=== PATIENT | female | born 1975 | race Caucasian/White ===

== ENCOUNTER 2016-09-05 08:57 | Inpatient (IN) | payer OTHER ==
[2016-09-05 10:02] VITALS: BMI 28.5
[2016-09-05] MEDS ORDERED: NICOTINE POLACRILEX 4 MG GUM BUC PRN (11:37)
[2016-09-05] MEDS ORDERED: MAGNESIUM HYDROX 2400MG/30ML ORAL SUSPENSION 30 ML CUP PO PRN (11:37)
[2016-09-05] MEDS ORDERED: MAGNESIUM CITRATE 300 ML BOTTLE PO PRN (11:37)
[2016-09-05] MEDS ORDERED: diphenhydrAMINE HCL 50 MG CAPSULE PO PRN (11:37)
[2016-09-05] MEDS ORDERED: MENTHOL/PHENOL 1 EACH UD MM PRN (11:37)
[2016-09-05] MEDS ORDERED: guaiFENesin/D-METHORPHAN HB 10 ML UNIT-DOSE CUPS PO PRN (11:37)
[2016-09-05] MEDS ORDERED: MAG HYDROX/AL HYDROX/SIMETH 30 ML UNIT-DOSE CUP PO PRN (11:37)
[2016-09-05] MEDS ORDERED: ACETAMINOPHEN 325 MG TABLET (FP) PO PRN (11:37)
[2016-09-05] MEDS ORDERED: IBUPROFEN 400 MG TABLET (FP) PO PRN (11:37)
[2016-09-05] MEDS ORDERED: P-EPHED 60MG/TRIPROLIDI 2.5MG TABLET PO PRN (11:37)
[2016-09-05] MEDS ORDERED: LOPERAMIDE HCL 2 MG CAPSULE PO PRN (11:37)
[2016-09-05] MEDS ORDERED: ALBUTEROL SO4 6.7 GM HFA INHALER IH PRN (11:46)
--- NOTE | 2016-09-05 11:54 | HP ---
CIWA Score - CIWA Score Nausea/Vomitin-Mild Nausea/No Vomiting Muscle Tremors: 5 Anxiety: 5 Agitation: 4-Moderately Restless Paroxysmal Sweats: 3 Orientation: 1-Uncertain about Date Tacttile Disturbances: 1-Very Mild Itch/Numbness Auditory Disturbances: 0-None Visual Disturbances: 0-None Headache: 0-None Present CIWA-Ar Total Score: 20 Admission ROS BHS - HPI Chief Complaint: Withdrawal sx. Allergies/Adverse Reactions: Allergies Allergy/AdvReac Type Severity Reaction Status Date / Time No Known Allergies Allergy Verified 09/05/16 10:29 History of Present Illness: 40 y/o woman with a long hx. of alcoholism is admitted for detox. Pt. denies previous detox. Exam Limitations: No Limitations - Ebola screening Have you traveled outside of the country in the last 21 days: No Have you had contact with anyone from an Ebola affected area: No Have you been sick,other than usual withdrawal symptoms: No Do you have a fever: No - Review of Systems Constitutional: Diaphoresis EENT: reports: No Symptoms Reported Respiratory: reports: Cough Cardiac: reports: No Symptoms Reported GI: reports: Nausea, Abdominal cramping : reports: No Symptoms Reported Musculoskeletal: reports: Joint Pain (Aparicio's cyst left knee) Integumentary: reports: Sweating Neuro: reports: Tingling, Tremors Endocrine: reports: No Symptoms Reported Hematology: reports: No Symptoms Reported Psychiatric: reports: No Sypmtoms Reported Other Systems: Reviewed and Negative Patient History - Patient Medical History Hx Anemia: Yes Hx Asthma: Yes Hx Chronic Obstructive Pulmonary Disease (COPD): Yes Hx Cancer: Yes (cervical) Hx Cardiac Disorders: No Hx Congestive Heart Failure: No Hx Hypertension: Yes Hx Hypercholesterolemia: No Hx Pacemaker: No HX Cerebrovascular Accident: No Hx Seizures: No Hx Dementia: No Hx Diabetes: No Hx Gastrointestinal Disorders: Yes (GERD) Hx Liver Disease: No Hx Genitourinary Disorders: No Hx Sexually Transmitted Disorders: No Hx Renal Disease (ESRD): No Hx Thyroid Disease: No Hx Human Immunodeficiency Virus (HIV): Yes (1988) Hx Hepatitis C: No Hx Depression: Yes Hx Suicide Attempt: No Hx Bipolar Disorder: Yes Hx Schizophrenia: No - Patient Surgical History Past Surgical History: Yes Hx Neurologic Surgery: No Hx Cataract Extraction: No Hx Cardiac Surgery: No Hx Lung Surgery: No Hx Breast Surgery: Yes (cyst left breast) Hx Breast Biopsy: No Hx Abdominal Surgery: No Hx Appendectomy: No Hx Cholecystectomy: No Hx Genitourinary Surgery: No Hx Section: No Hx Orthopedic Surgery: No Other Surgical History: Cervical biopsy Anesthesia Reaction: No - PPD History Previous Implant?: Yes Documented Results: Negative w/o proof Implanted On Prior R Admission?: No PPD to be Administered?: Yes - Reproductive History Patient is a Female of Child Bearing Age (11 -55 yrs old): Yes Last Menstrual Period: 03/28/16 Patient : No - Smoking Cessation Smoking history: Current every day smoker Have you smoked in the past 12 months: Yes Aproximately how many cigarettes per day: 40 Hx Chewing Tobacco Use: No Initiated information on smoking cessation: Yes 'Breaking Loose' booklet given: 09/05/16 - Substance & Tx. History Hx Alcohol Use: Yes Hx Substance Use: No Substance Use Type: Alcohol Hx Substance Use Treatment: No - Substances Abused Alcohol Route: Oral Frequency: Daily Amount used: 1 PINT COGNAC Age of first use: 16 Date of Last Use: 09/05/16 Family Disease History - Family Disease History Family Disease History: Diabetes: Mother, Heart Disease: Father (HTN), CA: Grandparent, Daughter (Leukemia) Admission Physical Exam BHS - Vital Signs Vital Signs: Vital Signs - 24 hr 09/05/16 10:00 Temperature 97.2 F L Pulse Rate 108 H Respiratory 20 Rate Blood Pressure 154/101 - Physical General Appearance: Yes: Alcohol on Breath, Tremorous, Irritable, Sweating, Anxious HEENTM: Yes: Rhinorrhea Respiratory: Yes: Chest Non-Tender, Lungs Clear, Normal Breath Sounds Neck: Yes: Supple Breast: Yes: Breast Exam Deferred Cardiology: Yes: Regular Rhythm, Regular Rate, S1, S2 Abdominal: Yes: Normal Bowel Sounds, Non Tender, Soft Genitourinary: Yes: Within Normal Limits Back: Yes: Within Normal Limits Musculoskeletal: Yes: Within Normal Limits Extremities: Yes: Tremors, Swelling (left knee) Neurological: Yes: Fully Oriented, Alert Integumentary: Yes: Diaphoresis Lymphatic: Yes: Within Normal Limits - Diagnostic (1) Alcohol dependence with uncomplicated withdrawal Current Visit: Yes Status: Acute (2) HTN (hypertension) Current Visit: Yes Status: Acute Qualifiers: Hypertension type: essential hypertension Qualified Code(s): I10 - Essential (primary) hypertension (3) AIDS (acquired immune deficiency syndrome) Current Visit: Yes Status: Acute (4) Asthma Current Visit: Yes Status: Acute Qualifiers: Asthma severity: mild intermittent Asthma complication type: uncomplicated Qualified Code(s): J45.20 - Mild intermittent asthma, uncomplicated (5) COPD (chronic obstructive pulmonary disease) Current Visit: Yes Status: Acute Cleared for Admission BHS - Detox or Rehab S Level of Care: Medically Managed Detox Regimen/Protocol: Librium S Breath Alcohol Content Breath Alcohol Content: 0.197 Urine Pregancy Test - Result Urine Test Results: Negative- NO Line Present Urine Drug Screen - Results Drug Screen Negative: Yes
[2016-09-05] MEDS ORDERED: chlordiazePOXIDE HCL 25 MG CAPSULE PO ONE (12:12)
[2016-09-05] MEDS: ENALAPRIL MALEATE 10 MG TABLET (FP) PO SCH (12:50)
[2016-09-05] MEDS: NICOTINE 21 MG/24 HOURS TOPICAL PATCH TD SCH (12:51)
[2016-09-05] MEDS: ACLIDINIUM BROMIDE 400 MCG/INH AERO.POWD IH SCH ×2 (13:05→22:20)
[2016-09-05] MEDS: METHYL SALICYLATE/MENTHOL OINT 30 GM TUBE TP SCH (13:06)
[2016-09-05] MEDS: NIFEdipine E.R. 90 MG TABLET (FP) PO SCH (13:07)
[2016-09-05] MEDS: RALTEGRAVIR POTASSIUM 400 MG TAB PO SCH ×2 (13:07→22:21)
[2016-09-05] MEDS: DARUNAVIR ETHANOLATE 800 MG TAB PO SCH (13:07)
[2016-09-05] MEDS: TENOFOVIR DISOPROXIL FUMARATE 300 MG TABLET PO SCH (13:07)
[2016-09-05] MEDS: IBUPROFEN 600 MG TABLET (FP) PO PRN (13:10)
[2016-09-05] MEDS: chlordiazePOXIDE HCL 25 MG CAPSULE PO PRN (16:04)
--- NOTE | 2016-09-05 17:33 | CONSULT ---
[facility] Psychiatric Consult - Data Date of interview: 09/05/16 Admission source: [facility] Identifying data: First admission to [facility] for this 40 y/o female seeking detox treatment for alcohol dependence.Patient is single,a mother of four,homeless,unemployed and supported on [employer] funds. Substance Abuse History: - Smoking Cessation. Smoking history: Current every day smoker. Have you smoked in the past 12 months: Yes. Aproximately how many cigarettes per day: 40. Hx Chewing Tobacco Use: No. Initiated information on smoking cessation: Yes. 'Breaking Loose' booklet given: 09/05/16. - Substance & Tx. History. Hx Alcohol Use: Yes. Hx Substance Use: No. Substance Use Type : Alcohol. Hx Substance Use Treatment: No. - Substances Abused. Alcohol. Route: Oral. Frequency: Daily. Amount used: 1 PINT [place]C. Age of first use: 16. Date of Last Use: 09/05/16. Confimed by patient. Medical History: HIV infection since 1988,COPD,bronchial asthma,GERD,diabetes mellitus,cervical dysplasia,hypertension and anemia. Psychiatric History: Diagnosed with Bipolar Disorder but never committed to a psychiatric institution.Prescribed risperdal and prozac (doses not recalled).Ms Zuñiga gets her outpatient psychiatric services at the [facility] in the [place].She denies history of suicide attempts. Physical/Sexual Abuse/Trauma History: Patient denies. Additional Comment: Drug Screen Negative: Yes .Noted. Mental Status Exam - Mental Status Exam Alert and Oriented to: Time, Place, Person Cognitive Function: Good Patient Appearance: Well Groomed Mood: Nervous, Withdrawn, Anxious Affect: Mood Congruent Patient Behavior: Sedated (light sedation), Fatigued, Appropriate, Cooperative Speech Pattern: Clear Voice Loudness: Moderately Soft/Quiet Thought Process: Goal Oriented Thought Disorder: Not Present Hallucinations: Denies Suicidal Ideation: Denies Homicidal Ideation: Denies Insight/Judgement: Fair Sleep: Poorly (requests ambien), Difficulty falling asleep Appetite: Good Muscle strength/Tone: Normal Gait/Station: Normal Psychiatric Findings - Problem List ([place] 1, 2,3) (1) Alcohol dependence with uncomplicated withdrawal Current Visit: Yes Status: Acute (2) Nicotine dependence Current Visit: Yes Status: Acute (3) Alcohol-induced mood disorder Current Visit: Yes Status: Acute (4) Bipolar disorder Current Visit: Yes Status: Acute Comment: Self-report. (5) AIDS (acquired immune deficiency syndrome) Current Visit: Yes Status: Chronic (6) Asthma Current Visit: Yes Status: Chronic Qualifiers: Asthma severity: mild intermittent Asthma complication type: uncomplicated Qualified Code(s): J45.20 - Mild intermittent asthma, uncomplicated (7) COPD (chronic obstructive pulmonary disease) Current Visit: Yes Status: Chronic (8) HTN (hypertension) Current Visit: Yes Status: Chronic Qualifiers: Hypertension type: essential hypertension Qualified Code(s): I10 - Essential (primary) hypertension (9) Insomnia Current Visit: Yes Status: Acute - Initial Treatment Plan Initial Treatment Plan: Psychoeducation.Detoxification.Medications : prozac 10 mg po daily + risperdal 2 mg po hs + ambien 5 mg po hs prn.Side effects/ benefits explained to patient.Made aware of risk of EPS (akathisia,akinesia, dystonias,dyskinesias),endocrine complications (sexual dysfunction,galactorrhea, gynecomastia),metabolic syndrome (risperdal),suicidal ideation,parasomnias ( zolpidem),NMS (neuroleptic malignant syndrome) sometimes associated with use of fluoxetine.No report of prior adverse events on these three drugs,according to the patient.Consent (verbal) given.Observation.
[2016-09-05] MEDS: chlordiazePOXIDE HCL 25 MG CAPSULE PO SCH ×2 (20:10→22:22)
[2016-09-05 20:12] LABS: URINE APPEARANCE SLCLOUDY; URINE BILIRUBIN NEGATIVE (NEGATIVE); URINE COLOR STRAW; URINE GLUCOSE (UA) NEGATIVE (NEGATIVE); URINE KETONE NEGATIVE (NEGATIVE); URINE NITRITE NEGATIVE (NEGATIVE); URINE PROTEIN NEGATIVE (NEGATIVE); URINE UROBILINOGEN NEGATIVE E.U./dl (0.2-1.0)
[2016-09-05 20:13] LABS: URINE BLOOD 2+ (NEGATIVE); URINE LEUK ESTERASE 3+ (NEGATIVE)
[2016-09-05 20:20] LABS: URINE BACTERIA RARE /hpf (NONE SEEN); URINE RBC 3 /hpf (0-3); URINE WBC 8 /hpf (3-5)
[2016-09-05] MEDS: ZOLPIDEM TARTRATE 5 MG TABLET PO PRN (22:22)
[2016-09-05] MEDS: THIAMINE HCL 100 MG TABLET (FP) PO SCH (22:22)
[2016-09-05] MEDS: risperiDONE 2 MG TABLET PO SCH (22:22)
[2016-09-06] MEDS: chlordiazePOXIDE HCL 25 MG CAPSULE PO SCH ×4 (05:31→22:22)
[2016-09-06] MEDS ORDERED: ALBUTEROL SO4 2.5/IPRATROPIUM 0.5 INH SOL 3 ML VIAL.NEB. NEB PRN (07:26)
[2016-09-06 10:08] LABS: MCH 27.2 pg (25.7-33.7); MCHC 32.1 g/dl (32.0-36.0); MEAN CELL VOLUME 84.7 fl (80-96); MEAN PLT VOLUME 6.9 fl (7.5-11.1); PLATELET COUNT 471 K/MM3 (134-434); RDW 18.3 % (11.6-15.6); WHITE BLOOD COUNT 8.1 K/mm3 (4.0-10.0)
[2016-09-06 10:21] LABS: ALBUMIN 3.9 g/dl (3.4-5.0); ANION GAP 8 (8-16); BILIRUBIN,TOTAL 0.4 mg/dL (0.2-1.0); CALCIUM 9.1 mg/dL (8.5-10.1); CO2 32 mmol/L (21-32); CREATININE 0.8 mg/dL (0.55-1.02); GLUCOSE,RANDOM 90 mg/dL (74-106); SGOT/AST 18 U/L (15-37); SGPT/ALT 33 U/L (12-78); TOT PROT 8.7 g/dl (6.4-8.2)
[2016-09-06 10:22] LABS: ALK PHOS 170 U/L (45-117)
[2016-09-06] MEDS: ACLIDINIUM BROMIDE 400 MCG/INH AERO.POWD IH SCH ×2 (11:05→22:21)
[2016-09-06] MEDS: METHYL SALICYLATE/MENTHOL OINT 30 GM TUBE TP SCH (11:05)
[2016-09-06] MEDS: RALTEGRAVIR POTASSIUM 400 MG TAB PO SCH ×2 (11:06→22:22)
[2016-09-06] MEDS: NICOTINE 21 MG/24 HOURS TOPICAL PATCH TD SCH (11:06)
[2016-09-06] MEDS: PRENATAL VITAMINS W/ FOLIC ACID TABLET (FP) PO SCH (11:07)
[2016-09-06] MEDS: DARUNAVIR ETHANOLATE 800 MG TAB PO SCH (11:07)
[2016-09-06] MEDS: NIFEdipine E.R. 90 MG TABLET (FP) PO SCH (11:08)
[2016-09-06] MEDS: FLUoxetine HCL 10 MG CAPSULE (FP) PO SCH (11:08)
[2016-09-06] MEDS: ENALAPRIL MALEATE 10 MG TABLET (FP) PO SCH (11:08)
[2016-09-06] MEDS: TENOFOVIR DISOPROXIL FUMARATE 300 MG TABLET PO SCH (11:09)
--- NOTE | 2016-09-06 16:17 | EKG ---
Test Reason : Blood Pressure : / mmHG Vent. Rate : 102 BPM Atrial Rate : 102 BPM P-R Int : 142 ms QRS Dur : 074 ms QT Int : 358 ms P-R-T Axes : 063 067 005 degrees QTc Int : 466 ms SINUS TACHYCARDIA POSSIBLE LEFT ATRIAL ENLARGEMENT CANNOT RULE OUT ANTERIOR INFARCT , AGE UNDETERMINED ABNORMAL ECG NO PREVIOUS ECGS AVAILABLE Confirmed by SONJA GARIBAY MD ([id number]) on 09/06/2016 4:16:56 PM Referred By: Tay Kuo Confirmed By:SONJA GARIBAY MD
--- NOTE | 2016-09-06 16:38 | PN ---
[facility] CIWA - CIWA Score Nausea/Vomitin-No Nausea/No Vomiting Muscle Tremors: 4-Moderate,w/Arms Extend Anxiety: 4-Mod. Anxious/Guarded Agitation: 4-Moderately Restless Paroxysmal Sweats: 3 Orientation: 2-Disoriented Date<2 days Tacttile Disturbances: 3-Moderate Itch/Numb/Burn Auditory Disturbances: 0-None Visual Disturbances: 0-None Headache: 0-None Present CIWA-Ar Total Score: 20 S Progress Note (SOAP) Subjective: Tremors, Body aches, Interrupted sleep, Left knee Pain (history of Aparicio's Cyst) , Sweating. Objective: PT. A & O X 2 (DISORIENTED ABOUT DAY / DATE). PT. OBSERVED AMBULATING ON UNIT. 09/06/16 16:35 Vital Signs Temperature 97.3 F L 09/06/16 14:33 Pulse Rate 85 09/06/16 14:33 Respiratory Rate 17 09/06/16 14:33 Blood Pressure 110/68 09/06/16 14:33 O2 Sat by Pulse Oximetry (%) Laboratory Last Values WBC 8.1 K/mm3 (4.0-10.0) 09/06/16 06:00 RBC 4.42 M/mm3 (3.60-5.2) 09/06/16 06:00 Hgb 12.0 GM/dL (10.7-15.3) 09/06/16 06:00 Hct 37.4 % (32.4-45.2) 09/06/16 06:00 MCV 84.7 fl (80-96) 09/06/16 06:00 MCHC 32.1 g/dl (32.0-36.0) 09/06/16 06:00 RDW 18.3 % (11.6-15.6) H 09/06/16 06:00 Plt Count 471 K/MM3 (134-434) H 09/06/16 06:00 MPV 6.9 fl (7.5-11.1) L 09/06/16 06:00 Sodium 139 mmol/L (136-145) 09/06/16 06:00 Potassium 4.3 mmol/L (3.5-5.1) 09/06/16 06:00 Chloride 99 mmol/L (98-107) 09/06/16 06:00 Carbon Dioxide 32 mmol/L (21-32) 09/06/16 06:00 Anion Gap 8 (8-16) 09/06/16 06:00 BUN 11 mg/dL (7-18) 09/06/16 06:00 Creatinine 0.8 mg/dL (0.55-1.02) 09/06/16 06:00 Creat Clearance w eGFR > 60 (>60) 09/06/16 06:00 Random Glucose 90 mg/dL (74-106) 09/06/16 06:00 Calcium 9.1 mg/dL (8.5-10.1) 09/06/16 06:00 Total Bilirubin 0.4 mg/dL (0.2-1.0) 09/06/16 06:00 AST 18 U/L (15-37) 09/06/16 06:00 ALT 33 U/L (12-78) 09/06/16 06:00 Alkaline Phosphatase 170 U/L (45-117) H 09/06/16 06:00 Total Protein 8.7 g/dl (6.4-8.2) H 09/06/16 06:00 Albumin 3.9 g/dl (3.4-5.0) 09/06/16 06:00 Urine Color Straw 09/05/16 13:00 Urine Appearance Slcloudy 09/05/16 13:00 Urine pH 6.0 (5.0-8.0) 09/05/16 13:00 Ur Specific [place] 1.003 (1.001-1.035) 09/05/16 13:00 Urine Protein Negative (NEGATIVE) 09/05/16 13:00 Urine Glucose (UA) Negative (NEGATIVE) 09/05/16 13:00 Urine Ketones Negative (NEGATIVE) 09/05/16 13:00 Urine Blood 2+ (NEGATIVE) H 09/05/16 13:00 Urine Nitrite Negative (NEGATIVE) 09/05/16 13:00 Urine Bilirubin Negative (NEGATIVE) 09/05/16 13:00 Urine Urobilinogen Negative E.U./dl (0.2-1.0) 09/05/16 13:00 Ur Leukocyte Esterase 3+ (NEGATIVE) H 09/05/16 13:00 Urine RBC 3 /hpf (0-3) 09/05/16 13:00 Urine WBC 8 /hpf (3-5) 09/05/16 13:00 Ur Epithelial Cells Few /hpf (FEW) 09/05/16 13:00 Urine Bacteria Rare /hpf (NONE SEEN) 09/05/16 13:00 RPR Titer Nonreactive (NONREACTIVE) 09/06/16 06:00 LABS NOTED. Assessment: 09/06/16 16:37 WITHDRAWAL SYMPTOMS. Plan: CONTINUE DETOX. ADVISED PATIENT TO FOLLOW-UP WITH TEAM PHYSICIAN / REHAB MEDICAL PROVIDER AFTER DISCHARGE FROM DETOX FOR GENERAL MEDICAL ASSESSMENT AND FOR ABNORMAL ADMISSION LAB VALUES.
[2016-09-06] MEDS: LIDOCAINE 5% TOPICAL PATCH TP SCH (17:15)
[2016-09-06] MEDS: chlordiazePOXIDE HCL 25 MG CAPSULE PO PRN (19:26)
[2016-09-06] MEDS: IBUPROFEN 600 MG TABLET (FP) PO PRN (21:20)
[2016-09-06] MEDS: risperiDONE 2 MG TABLET PO SCH (22:21)
[2016-09-06] MEDS: THIAMINE HCL 100 MG TABLET (FP) PO SCH (22:22)
[2016-09-06] MEDS: ZOLPIDEM TARTRATE 5 MG TABLET PO PRN (22:22)
[2016-09-07] MEDS: chlordiazePOXIDE HCL 25 MG CAPSULE PO SCH ×2 (05:32→10:32)
[2016-09-07] MEDS: RALTEGRAVIR POTASSIUM 400 MG TAB PO SCH (10:31)
[2016-09-07] MEDS: METHYL SALICYLATE/MENTHOL OINT 30 GM TUBE TP SCH (10:31)
[2016-09-07] MEDS: ACLIDINIUM BROMIDE 400 MCG/INH AERO.POWD IH SCH (10:31)
[2016-09-07] MEDS: PRENATAL VITAMINS W/ FOLIC ACID TABLET (FP) PO SCH (10:31)
[2016-09-07] MEDS: ENALAPRIL MALEATE 10 MG TABLET (FP) PO SCH (10:31)
[2016-09-07] MEDS: DARUNAVIR ETHANOLATE 800 MG TAB PO SCH (10:31)
[2016-09-07] MEDS: TENOFOVIR DISOPROXIL FUMARATE 300 MG TABLET PO SCH (10:31)
[2016-09-07] MEDS: NIFEdipine E.R. 90 MG TABLET (FP) PO SCH (10:32)
[2016-09-07] MEDS: LIDOCAINE 5% TOPICAL PATCH TP SCH (10:32)
[2016-09-07] MEDS: FLUoxetine HCL 10 MG CAPSULE (FP) PO SCH (10:32)
[2016-09-07] MEDS: NICOTINE 21 MG/24 HOURS TOPICAL PATCH TD SCH (10:37)
[2016-09-07 11:52] VITALS: BP 137/98; PULSE 116; TEMP 98.2
--- NOTE | 2016-09-07 12:41 | DS ---
[facility] Detox Discharge Summary Admission Date: 09/05/16 Discharge Date: 09/07/16 - History Present History: Alcohol Dependence Pertinent Past History: Anemia Asthma, mild intermittent COPD HTN GERD HIV - Physical Exam Results Vital Signs: Vital Signs Temperature 98.2 F 09/07/16 10:00 Pulse Rate 116 H 09/07/16 10:00 Respiratory Rate 18 09/07/16 10:00 Blood Pressure 137/98 09/07/16 10:00 O2 Sat by Pulse Oximetry (%) Pertinent Admission Physical Exam Findings: Withdrawal symptoms Laboratory Tests 09/05/16 09/06/16 09/06/16 13:00 06:00 06:00 WBC 8.1 RBC 4.42 Hgb 12.0 Hct 37.4 MCV 84.7 MCHC 32.1 RDW 18.3 H Plt Count 471 H MPV 6.9 L Sodium 139 Potassium 4.3 Chloride 99 Carbon Dioxide 32 Anion Gap 8 BUN 11 Creatinine 0.8 Creat Clearance w eGFR > 60 Random Glucose 90 Calcium 9.1 Total Bilirubin 0.4 AST 18 ALT 33 Alkaline Phosphatase 170 H Total Protein 8.7 H Albumin 3.9 Urine Color Straw Urine Appearance Slcloudy Urine pH 6.0 Ur Specific [place] 1.003 Urine Protein Negative Urine Glucose (UA) Negative Urine Ketones Negative Urine Blood 2+ H Urine Nitrite Negative Urine Bilirubin Negative Urine Urobilinogen Negative Ur Leukocyte Esterase 3+ H Urine RBC 3 Urine WBC 8 Ur Epithelial Cells Few Urine Bacteria Rare RPR Titer 09/06/16 06:00 WBC RBC Hgb Hct MCV MCHC RDW Plt Count MPV Sodium Potassium Chloride Carbon Dioxide Anion Gap BUN Creatinine Creat Clearance w eGFR Random Glucose Calcium Total Bilirubin AST ALT Alkaline Phosphatase Total Protein Albumin Urine Color Urine Appearance Urine pH Ur Specific [place] Urine Protein Urine Glucose (UA) Urine Ketones Urine Blood Urine Nitrite Urine Bilirubin Urine Urobilinogen Ur Leukocyte Esterase Urine RBC Urine WBC Ur Epithelial Cells Urine Bacteria RPR Titer Nonreactive Labs noted - Medication Discharge Medications: Ambulatory Orders Darunavir/Cobicistat [Prezcobix 800 mg-150 mg Tablet] 1 each PO DAILY 09/03/16 Dolutegravir Sodium [Tivicay] 50 mg PO DAILY 09/03/16 Enalapril Maleate [Vasotec] 20 mg PO DAILY 09/03/16 Fluoxetine HCl [Prozac -] 10 mg PO DAILY 09/03/16 Nifedipine [Adalat cc] 90 mg PO DAILY 09/03/16 Risperidone [Risperdal] 2 mg PO BID 09/03/16 Tenofovir Disoproxil Fumarate [Viread] 300 mg PO DAILY 09/03/16 Tiotropium Ozone [Spiriva] 1 inh IH BID 09/03/16 Fluoxetine HCl [Prozac -] 10 mg PO DAILY #30 capsule 09/05/16 Risperidone [Risperdal] 2 mg PO HS #30 tablet 09/05/16 - Diagnosis (1) Alcohol dependence with uncomplicated withdrawal Current Visit: Yes Status: Acute (2) Bipolar disorder Current Visit: Yes Status: Chronic (3) Nicotine dependence Current Visit: Yes Status: Chronic (4) AIDS (acquired immune deficiency syndrome) Current Visit: Yes Status: Chronic (5) Asthma Current Visit: Yes Status: Chronic Qualifiers: Asthma severity: mild intermittent Asthma complication type: uncomplicated Qualified Code(s): J45.20 - Mild intermittent asthma, uncomplicated (6) COPD (chronic obstructive pulmonary disease) Current Visit: Yes Status: Chronic (7) HTN (hypertension) Current Visit: Yes Status: Chronic Qualifiers: Hypertension type: essential hypertension Qualified Code(s): I10 - Essential (primary) hypertension (8) GERD (gastroesophageal reflux disease) Current Visit: Yes Status: Chronic - AMA Did Patient Leave Against Medical Advice: Yes
[2016-09-07] MEDS ORDERED: chlordiazePOXIDE 5 MG CAPSULE PO SCH (17:00)
[2016-09-08] MEDS ORDERED: chlordiazePOXIDE HCL 10 MG CAPSULE PO SCH (17:00)
== END 2016-09-07 10:57 | disposition left against medical advice (07) | DRG 770 ==
LOC: YASAS 08:57 → Y6N 11:18
PROVIDERS: ADMIT Internal Medicine; ATTEND Internal Medicine
PROC: HZ2ZZZZ Detoxification Services for Substance Abuse Treatment (ICD-10-PCS; principal; 2016-09-07)
DX: F10.230 Alcohol dependence with withdrawal, uncomplicated (principal); F17.210 Nicotine dependence, cigarettes, uncomplicated; F10.24 Alcohol dependence with alcohol-induced mood disorder; F31.9 Bipolar disorder, unspecified; B20 Human immunodeficiency virus [HIV] disease; J45.20 Mild intermittent asthma, uncomplicated; J44.9 Chronic obstructive pulmonary disease, unspecified; I10 Essential (primary) hypertension; G47.00 Insomnia, unspecified
CPT/HCPCS: 36415; 80053; 81003; 81015; 85027; 86593; 93005; 93010